=== PATIENT | male | born 2000 | race Caucasian/White ===

== ENCOUNTER 2025-01-14 09:53 | Outpatient (AMB) | payer OTHER, SELFPAY ==
--- NOTE | 2025-01-14 10:18 | A.OFFPC_ITS ---
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 He reports a past medical history of tinnitus and sinus pressure, for which he takes no medications. The patient's primary concern is extreme anxiety, which started a month and a half ago. Triggers for his anxiety include nothingness, work, and responsibility. He is currently taking hydroxyzine, which has been helping, but he wishes to start a more long-term treatment. He has tried therapy multiple times in his life but has not stuck with it. He denies any thoughts of hurting himself or others. He also reports experiencing delusions, extreme paranoia, trouble concentrating, and seeing faces morph. He describes one delusion during a wedding where sensory inputs reminiscent of a horror video game made him feel as though he was being transported into the game's environment. During periods of extreme panic, he experiences episodes where words lose their meaning and letters appear as abstract shapes. The patient has seen a psychiatrist once but felt misunderstood and is seeking a new referral. [facility] Medical History Alcohol abuse Family History (Updated 01/14/25 @ 10:29 by Cindi Dominguez MA) Father No problems noted. Mother No problems noted. Social History Housing: Apartment Patient Tobacco Use Status: Never used Tobacco Tobacco use type: Cigarette e-Cigarette/Vaping Use: Never Used Second Hand Smoke Exposure: No service: No Current occupational status: employed Current occupation: [employer] Cognitive needs: Yes Vision needs: Yes Questionnaire PHQ-9 Over the last 2 weeks, how often have you been bothered by any of the following problems? 1. Little interest or pleasure in doing things: nearly every day 2. Feeling down, depressed, or hopeless: nearly every day 3. Trouble falling or staying asleep, or sleeping too much: several days 4. Feeling tired or having little energy: nearly every day 5. Poor appetite or overeating: several days 6. Feeling bad about yourself - or that you are a failure or have let yourself or your family down: more than half the days 7. Trouble concentrating on things, such as reading the newspaper or watching television: more than half the days 8. Moving or speaking so slowly that other people could have noticed. Or the opposite - being so fidgety or restless that you have been moving around a lot more than usual: more than half the days 9. Thoughts that you would be better off or of hurting yourself in some way: not at all Total score: 17 Depression Screening Interpretation: Positive (Fluoxetine. Psych referral.) Depression Screening Follow-up: New Medication prescribed and Community Mental Health Worker F/U Depression Screening Done: Yes Source: Developed by Drs. Chadd Ayon, Hansa Desai, Lucio Morales and colleagues, with an educational phil from [employer]. Thrive Questionnaire Date Thrive assessed: 01/13/25 I am a: Patient What is your living situation today?: I have a steady place to live Within the past 12 months, did the food you bought not last and you didn't have the money to get more?: Never true Within the past 12 months, did you worry whether your food would run out before you got money to buy more?: Never true Do you have trouble paying for medicines?: No Do you have trouble getting transportation to medical appointments?: No Do you have trouble paying your heating and electricity bill?: No Do you have trouble taking care of your child, family member or friend?: No Do you have trouble with day-to-day activities such as bathing, preparing meals, shopping, managing finances, etc.?: I choose not to answer this question Are you currently unemployed and looking for a job?: No Are you interested in more education?: Yes Please select the resources that you would like help with: Job search/training Currently or been in a relationship where the following occur: I choose not to answer THRIVE Score: 0 AUDIT C Alcohol Use Questionnaire (AUDIT-C) 1. How often do you have a drink containing alcohol?: 2-3 times a week 2. How many drinks containing alcohol do you have on a typical day when you are drinking?: 3 or 4 3. How often do you have six or more drinks on one occasion?: Less than monthly Total Score: 5 VANGIE-7 AMB Questionnaire VANGIE-7 Date VANGIE - 7 assessed: 01/14/25 Feeling nervous, anxious, or on edge: 3 = Nearly every day Not being able to stop or control worryin = Several days Worrying too much about different things: 2 = More than half the days Trouble relaxin = More than half the days Being so restless that it is hard to sit still: 3 = Nearly every day Becoming easily annoyed or irritable: 3 = Nearly every day Feeling afraid as if something awful might happen: 1 = Several days Total VANGIE-7 score (0-4 normal; 5-9 mild; 10-14 moderate; 15-21 severe): 15 Source: Developed by Drs. Chadd Ayno, Hansa Desai, Lucio Morales and colleagues, with an educational phil from [employer]. Physical exam (Primary Care) Vital Signs: Last Vital Signs Temp 97.3 F 01/14/25 10:24 BP 118/80 01/14/25 10:24 Oxygen Delivery Method Room Air 01/14/25 10:24 BMI result Body Mass Index 23.9 Tobacco/Smoking Status: Tobacco use Status Tobacco use date assessed 01/14/25 01/14/25 10:32 Patient Tobacco Use Status Never used Tobacco 01/14/25 10:32 Tobacco use type Cigarette 01/14/25 10:32 e-Cigarette/Vaping Use Never Used 01/14/25 10:32 PHQ-9: PHQ-9 Score PHQ-9: Total score 17 01/14/25 11:11 Depression Screening Interpretation: Positive (Fluoxetine. Psych referral.) Depression Screening Follow-up: New Medication prescribed and Community Mental Health Worker F/U Thrive Assessment: Date of Thrive Assessment Date Thrive assessed 01/13/25 01/14/25 10:19 Currently or been in a relationship where the following occur: I choose not to answer Office Procedures Flu Questionnaire Does the patient have a severe egg allergy?: No Does the patient have severe life threatening allergies?: No Does the patient have a fever or illness today?: No Has the patient ever had Guillain-Philo Syndrome?: No Has the patient ever had any past reaction to a flu shot?: No Immunizations Fluarix [id number] (PF) 45 mcg (15 mcg x 3)/0.5 mL IM syringe Performing Provider: Michael Gill MD Performing Location: [facility] [place] [facility] Administered by: Rashmi Gregorio CMA on 01/14/25 11:15 Dose Route Admin Location Dispensed Lot Number Expiration Date NDC Thread Checker 0.5 mL IM Left Deltoid 0.5 mL [id number] 09/08/25 52643-359-94 [employer] VIS Given Date VIS Provided VIS Publication Date 01/14/25 Single Vaccine 24 Eligibility Eligibility Date Funding Source Not VFC Eligible 01/14/25 Private Boostrix Tdap 2.5 Lf unit-8 mcg-5 Lf/0.5 mL intramuscular syringe Performing Provider: Michael Gill MD Performing Location: [facility] Administered by: Rashmi Gregorio CMA on 01/14/25 11:15 Dose Route Admin Location Dispensed Lot Number Expiration Date NDC Thread Checker 0.5 mL IM Left Deltoid 0.5 mL [id number] 06/06/27 01981-680-72 [employer] Total Dispensed Waste 0.5 mL 0 % VIS Given Date VIS Provided VIS Publication Date 01/14/25 Single Vaccine 20 Eligibility Eligibility Date Funding Source Not VFC Eligible 01/14/25 Private Coding Level of Care Code New Pt Level 4 (50695) New Pt Prev Care 18-39yr([id number] Diagnoses Paranoid F22 Anxiety F41.9 Healthcare maintenance Z00.00 Tinnitus of left ear H93.12 Laterality: left Delusion F22 Time Spent (min) 40 Assessment & Plan Assessment & Plan (1) Paranoid: Code(s): F22 - Delusional disorders Category: Medical Plan: - The patient reports extreme anxiety, delusions, and paranoia. - A new prescription for fluoxetine will be started to manage symptoms of depression and anxiety. - The patient may continue using his current hydroxyzine as needed until the supply is depleted. - An urgent referral to psychiatry will be placed for evaluation and management of psychosis. - A referral will be made to a therapist, and the patient is also encouraged to explore therapy options through his insurance. (2) Anxiety: Code(s): F41.9 - Anxiety disorder, unspecified Category: Medical Plan: Fluoxetine 20 mg ordered. F-U in 6 weeks. No SI or HI. Psych referral was placed. Nurse navigator referral placed to assist the patient in scheduling his appointment. (3) Healthcare maintenance: Code(s): Z00.00 - Encounter for general adult medical examination without abnormal findings Category: Medical Plan: CBC, CMP, Lipid panel, A1C, TSH w T4, vit D. Ordered today. Shingles 2 doses when >50 yo. Not indicated. COVID: two doses. Completed in the past. Pneumococcal: >50 yo. 18-49 with CKD, lung disease, weakened immune system, Heart disease, DM, cochlear implant. Not indicated. Flu vaccine: Ordered today. Tdap: every 10 years. Colonoscopy: 45-75. Not indicated. AAA: 65 -75. [address]. CT lun - 80. Not indicated. PSA: 50 -70 every two years. At 50. HIV: Ordered. HCV: Ordered. (4) Tinnitus: Code(s): H93.19 - Tinnitus, unspecified ear Category: Medical Qualifiers: Laterality: left Qualified Code(s): H93.12 - Tinnitus, left ear Plan: - The patient reports tinnitus, which is exacerbated by loud noises at his workplace. - The patient was advised to continue using earplugs and to request accommodations at work for sound sensitivity. - Further discussion and evaluation of tinnitus will be deferred to the follow- up visit in six weeks. (5) Delusion: Code(s): F22 - Delusional disorders Category: Medical Plan: - An urgent referral to psychiatry will be placed for evaluation and management of psychosis. Plan I have discussed the plan with the patient. We will start fluoxetine for his anxiety and mood symptoms, as hydroxyzine is not a long-term solution. I emphasized the importance of a combined approach with medication and therapy. Given his reports of delusions and paranoia, I explained that a specialist evaluation is crucial, and I will be referring him to our psychiatry department for urgent follow-up. We will also place a referral for therapy. We ordered general labs, including infectious disease screening, and administered his flu and Tdap vaccinations. We will follow up in six weeks to monitor his progress. Orders: Orders Complete Blood Count no Diff Today Z00.00 - Encounter for general adult medical examination without abnormal findings Hemoglobin A1c Today Z00.00 - Encounter for general adult medical examination without abnormal findings Lipid Panel Today Z00.00 - Encounter for general adult medical examination without abnormal findings Hepatitis C Antibody Reflex Today Z00.00 - Encounter for general adult medical examination without abnormal findings TDaP Immunization Today Z23 - Encounter for immunization Influenza [id number] Immunization Today Z23 - Encounter for immunization Comprehensive Met. Panel Today Z00.00 - Encounter for general adult medical examination without abnormal findings Vitamin B12 and Folate Today D64.9 - Anemia, unspecified, Z00.00 - Encounter for general adult medical examination without abnormal findings Vitamin D 25-OH Total Today Z00.00 - Encounter for general adult medical examination without abnormal findings HIV Ab/Ag Today Z00.00 - Encounter for general adult medical examination without abnormal findings Referrals Behavioral Health Referral F32.A - Depression, unspecified, F41.9 - Anxiety disorder, unspecified Psychiatry Referral F22 - Delusional disorders Nurse Navigator Referral F41.9 - Anxiety disorder, unspecified Medications: New fluoxetine 20 mg PO DAILY 60 caps 3RF
[2025-01-14 10:24] VITALS: BP 118/80; TEMP 36.3; BMI 23.9
== END 2025-01-14 11:22 | disposition home or self-care (01) ==
LOC: HO.HMCH 09:54
PROVIDERS: PCP Pediatrics; Visit Provider Internal Medicine
DX: F41.9 Anxiety disorder, unspecified (principal); F22 Delusional disorders; H93.12 Tinnitus, left ear; Z23 Encounter for immunization

== ENCOUNTER → 2025-01-14 09:53 | Outpatient (BNVA) | payer OTHER, SELFPAY | PROVIDERS: PCP Pediatrics; Visit Provider Internal Medicine | DX: Z13.31 Encounter for screening for depression (principal); Z13.39 Encounter for screening examination for other mental health and behavioral disorders; Z23 Encounter for immunization | CPT/HCPCS: 90471; 90472; 90656; 90715; 96127 ==

== ENCOUNTER 2025-02-24 13:50 | Outpatient (REF) | payer SELFPAY ==
[2025-02-24 16:22] LABS: Hematocrit 46.0 % (42.0-52.0); Hemoglobin 16.1 g/dl (14.0-18.0); Mean Corpuscular HGB Conc 35.0 g/dl (31.0-36.0); Mean Corpuscular Hemoglobin 30.8 pg (27.0-33.0); Mean Corpuscular Volume 88.1 fL (80.0-98.0); NRBC Abs Auto 0.000 X10*3/uL (0.0-0.012); NRBC Pct Auto 0.0 /100WBC (0.0-0.2); Platelet Count 300 X10*3/uL (160-400); Red Blood Count 5.22 X10*6/uL (4.60-5.80); White Blood Count 5.6 X10*3/uL (4.8-10.8)
[2025-02-24 16:46] LABS: Alanine Aminotransferase 17 U/L (0-40); Albumin Level 5.1 g/dL (3.5-5.0); Alkaline Phosphatase 70 U/L (39-117); Anion Gap 10 (12-20); Aspartate Amino Transferase 33 U/L (5-37); Blood Urea Nitrogen 14 mg/dL (9-16); Calcium 9.8 mg/dL (8.4-10.2); Carbon Dioxide 29 mmol/L (22-29); Chloride 103 mmol/L (96-108); Cholesterol 216 mg/dL (<200); Estimated Glomerular Filt Rate > 60; HDL Cholesterol 49 mg/dL (>40); Potassium 4.0 mmol/L (3.3-5.1); Sodium 138 mmol/L (135-145); Total Protein 7.6 g/dL (6.5-8.0); Triglycerides 149 mg/dL (<150)
[2025-02-24 17:14] LABS: Folate 6.6 ng/mL (> or = 4.0); Vitamin B12 410 pg/mL (200-900)
--- OUTSIDE RECORDS SUMMARY | 2025-02-24 18:02 | XMS_ITS ---
Author Name [facility] Organization Unknown History of Medication Use Medication Directions Dispensed Refills Start Date End Date Stat FLUoxetine (PROzac) 20 MG capsule TAKE 1 CAPSULE BY MOUTH DAILY 01/14/2025 active Problems Problem Status Onset Date Problem Type Date of Resolution Source Postviral fatigue syndrome active EncounterDiagnosisAct [facility] Encounters Encounter Type Encounter Reason Primary Diagnosis Location Date Ambulatory Constitutional Anxiety disorder , unspecified [facility]25 Care Team Organization Name Specialty Phone Email Start Date End Da te [facility] NO PCP Primary Care 01/27
[2025-02-25 04:39] LABS: HIV Num 1 0.06 S/CO (0.00-0.99); ~HepC Num1 0.10 S/CO (0.00-0.79); ~Hepatitis C Antibody Nonreactive (Nonreactive)
== END 2025-02-24 13:51 | disposition home or self-care (01) ==
LOC: HO.HMGCLDS 13:50
PROVIDERS: PCP Internal Medicine; Visit Provider Internal Medicine
DX: Z00.00 Encounter for general adult medical examination without abnormal findings (principal); Z11.4 Encounter for screening for human immunodeficiency virus [HIV]; Z11.59 Encounter for screening for other viral diseases; Z13.1 Encounter for screening for diabetes mellitus; Z13.6 Encounter for screening for cardiovascular disorders; Z13.21 Encounter for screening for nutritional disorder; D64.9 Anemia, unspecified
CPT/HCPCS: 36415; 80053; 80061; 82306; 82607; 82746; 83036; 85027; 86803; 87389